=== PATIENT | female | born 1970 | race African-American/Black ===

== ENCOUNTER 2018-02-20 09:00 | Outpatient (CLI) | payer OTHER ==
[2018-02-20 10:58] LABS: INR-International Normal Ratio 1.1; PTT 28.1 SEC (22.9-36.1); Prothrombin Time 13.8 SEC (12.0-14.7)
[2018-02-20 11:00] LABS: Hemoglobin 13.5 g/dL (12.0-16.0); Mean Corpuscular HGB CONC 32.1 g/dL (32.0-36.0); Mean Corpuscular Volume 87.1 fl (81.0-99.0); Mean Platelet Volume 6.8 fL (7.4-10.4); Platelet Count 254 thou/uL (130-400); RBC Distribution Width 12.7 % (11.5-14.5); Red Blood Cell (RBC) Count 4.81 mill/uL (4.20-5.40)
[2018-02-20 11:17] LABS: ALT (SGPT) 16 U/L (8-55); AST (SGOT) 12 U/L (5-34); Albumin 4.3 g/dL (3.5-5.0); Alkaline Phosphatase 84 U/L (40-150); Anion Gap 10 mmol/L (10-20); BUN (Urea Nitrogen) 14 mg/dL (7.0-18.7); Bilirubin, Total 0.8 mg/dL (0.2-1.2); Calc. Creatinine Clearance 0 mL/min (70-130); Calcium 9.6 mg/dL (7.8-10.44); Carbon Dioxide 26 mmol/L (22-29); Cardiac Risk 4.9 (Less than 4.5); Chloride 108 mmol/L (98-107); Cholesterol 166 mg/dl (< 200 Desired); Estimated GFR-MDRD Greater than 90; Glucose 111 mg/dL (70-105); HDL Cholesterol 34 mg/dL (>60 Neg Risk); LDL Cholesterol, Calculated 102 mg/dL; Protein, Total 7.3 g/dL (6.0-8.3); Sodium 140 mmol/L (136-145); Triglycerides 151 mg/dL (Less than 150)
--- NOTE | 2018-03-19 11:04 | EKG ---
Test Reason : Blood Pressure : / mmHG Vent. Rate : 074 BPM Atrial Rate : 074 BPM P-R Int : 162 ms QRS Dur : 094 ms QT Int : 380 ms P-R-T Axes : 060 007 010 degrees QTc Int : 421 ms Normal sinus rhythm Normal ECG When compared with ECG of 23-AUG-2016 11:55, No significant change was found Confirmed by MONICA PAZ M.D. ([id number] on 03/19/2018 11:04:30 AM Referred By: JACKSON Confirmed By:MONICA PAZ M.D.
== END 2018-02-20 09:01 | disposition home or self-care (01) ==
LOC: LABBT 09:00
PROVIDERS: ATTEND Internal Medicine Cardiovascular Disease
DX: Z01.818 Encounter for other preprocedural examination (principal); R07.9 Chest pain, unspecified
CPT/HCPCS: 80053; 80061; 85027; 85610; 85730; 93005; 93010

== ENCOUNTER 2018-02-23 05:35 | Day surgery (SDC) | payer OTHER ==
[2018-02-20 09:29] VITALS: BMI 40.7
[2018-02-23] MEDS ORDERED: Lidocaine 1% (PF) 30 ML VIAL ONE (06:35)
[2018-02-23] MEDS ORDERED: Nitroglycerin 100MG/250ML BOT 250 ML ONE (07:50)
[2018-02-23] MEDS ORDERED: Verapamil 5 MG/2 ML VIAL ONE (07:50)
[2018-02-23] MEDS ORDERED: Heparin 10,000 UNITS/1 ML VIAL ONE (07:50)
[2018-02-23] MEDS ORDERED: Fentanyl 250 MCG/5 ML VIAL ONE (08:02)
[2018-02-23] MEDS ORDERED: Midazolam HCl 2 mg/2 ml Vial ONE (08:02)
[2018-02-23] MEDS ORDERED: Iopamidol 370 76% 100 ML VIAL ONE (13:27)
== END 2018-02-23 12:50 | disposition home or self-care (01) ==
LOC: CCL 05:35
PROVIDERS: ATTEND Internal Medicine Cardiovascular Disease
PROC: 4A023N7 Measurement of Cardiac Sampling and Pressure, Left Heart, Percutaneous Approach (ICD-10-PCS; principal; 2018-02-23)
DX: R07.9 Chest pain, unspecified (principal); E11.9 Type 2 diabetes mellitus without complications; I10 Essential (primary) hypertension; F31.9 Bipolar disorder, unspecified; Z90.710 Acquired absence of both cervix and uterus; Z85.43 Personal history of malignant neoplasm of ovary; Z82.49 Family history of ischemic heart disease and other diseases of the circulatory system; Z83.3 Family history of diabetes mellitus
CPT/HCPCS: 93458; 99152; 99153; C1769; J1644; J2001; J2250; J3010

== ENCOUNTER 2018-04-28 20:32 | Emergency (ER) | payer OTHER ==
[2018-04-28] MEDS ORDERED: Ibuprofen 800 MG TAB ONE (21:00)
--- NOTE | 2018-04-28 21:42 | RAD ---
LEFT KNEE FOUR VIEW 04/28/18 HISTORY: Emergency exam. Pain. COMPARISON: Radiograph 2011. FINDINGS: Small joint effusion. Mild prepatellar soft tissue edema. No acute displaced fracture or malalignment . Mild enthesopathic changes. IMPRESSION: No acute fracture or malalignment. POS: [facility]
== END 2018-04-28 23:38 | disposition home or self-care (01) ==
LOC: ERS 20:32
DX: M25.562 Pain in left knee (principal); E78.5 Hyperlipidemia, unspecified; I10 Essential (primary) hypertension; F41.9 Anxiety disorder, unspecified; F31.9 Bipolar disorder, unspecified; Z85.42 Personal history of malignant neoplasm of other parts of uterus

== ENCOUNTER 2018-06-08 17:39 | Emergency (ER) | payer OTHER | END 2018-06-08 19:05 | disposition home or self-care (01) | LOC: ERS 17:39 | DX: R60.0 Localized edema (principal); E78.5 Hyperlipidemia, unspecified; I10 Essential (primary) hypertension; Z85.42 Personal history of malignant neoplasm of other parts of uterus; F41.9 Anxiety disorder, unspecified; F31.9 Bipolar disorder, unspecified | CPT/HCPCS: 99284 ==

== ENCOUNTER 2018-07-20 12:51 | Emergency (ER) | payer OTHER ==
[2018-07-20 13:35] LABS: #Basophils 0.1 thou/uL (0.0-0.2); #Eosinphils 0.2 thou/uL (0.0-0.7); #Lymphocytes 1.8 thou/uL (1.20-3.40); #Monocytes 0.3 thou/uL (0.11-0.59); #Neutrophils 3.4 thou/uL (1.40-6.50); %Eosinophils 2.8 % (0.0-10.0); %Lymphocytes 30.9 % (21.0-51.0); %Monocytes 5.5 % (0.0-10.0); %Neutrophils 59.8 % (42.0-75.0); Hemoglobin 13.4 g/dL (12.0-16.0); Mean Corpuscular HGB CONC 34.2 g/dL (32.0-36.0); Mean Corpuscular Hemoglobin 28.6 pg (27.0-31.0); Mean Corpuscular Volume 83.6 fL (78.0-98.0); Mean Platelet Volume 6.4 fL (7.4-10.4); Platelet Count 255 thou/uL (130-400); RBC Distribution Width 12.6 % (11.5-14.5); Red Blood Cell (RBC) Count 4.69 mill/uL (4.20-5.40); White Blood Cell (WBC) Count 5.7 thou/uL (4.8-10.8)
[2018-07-20 13:55] LABS: ALT (SGPT) 18 U/L (8-55); AST (SGOT) 13 U/L (5-34); Albumin 4.3 g/dL (3.5-5.0); Alkaline Phosphatase 75 U/L (40-150); Anion Gap 14 mmol/L (10-20); BUN (Urea Nitrogen) 15 mg/dL (7.0-18.7); Bilirubin, Total 0.8 mg/dL (0.2-1.2); CK (CPK) 121 U/L (29-168); Calc. Creatinine Clearance 0 mL/min (70-130); Calcium 9.4 mg/dL (7.8-10.44); Carbon Dioxide 21 mmol/L (22-29); Chloride 108 mmol/L (98-107); Estimated GFR-MDRD 70; Globulin 3.7 g/dL (2.4-3.5); Glucose 109 mg/dL (70-105); Potassium 3.8 mmol/L (3.5-5.1); Sodium 139 mmol/L (136-145)
[2018-07-20 14:00] LABS: CKMB 1.6 ng/mL (0-6.6); Troponin I Less than 0.010 ng/mL (< 0.028)
--- NOTE | 2018-07-20 14:34 | RAD ---
CHEST 1 VIEW: Date: 07/20/18 HISTORY: Chest pain. COMPARISON: Chest radiograph dated 08/23/16. FINDINGS: No acute focal air space consolidation, pneumothorax, or effusion. Cardiac silhouette and mediastinal contours within normal limits. IMPRESSION: No acute intrathoracic abnormality. POS: [facility]
== END 2018-07-20 15:58 | disposition home or self-care (01) ==
LOC: ERS 12:51
DX: R07.2 Precordial pain (principal); I10 Essential (primary) hypertension; F31.9 Bipolar disorder, unspecified; Z79.899 Other long term (current) drug therapy
CPT/HCPCS: 36415; 71045; 80053; 82550; 82553; 83880; 84484; 85025; 93005

== ENCOUNTER 2018-12-09 13:31 | Emergency (ER) | payer OTHER | END 2018-12-09 14:27 | disposition home or self-care (01) | LOC: ERS 13:31 | DX: M25.562 Pain in left knee (principal); G89.29 Other chronic pain; E78.5 Hyperlipidemia, unspecified; I10 Essential (primary) hypertension; F41.9 Anxiety disorder, unspecified; F31.9 Bipolar disorder, unspecified; Z79.899 Other long term (current) drug therapy | CPT/HCPCS: 99283 ==

== ENCOUNTER 2019-06-11 16:04 | Emergency (ER) | payer OTHER ==
[2019-06-11] MEDS ORDERED: Ketorolac Tromethamine 30 MG/ML VIAL ONE (17:50)
--- NOTE | 2019-06-11 18:44 | RAD ---
LUMBAR SPINE: 06/11/19 Three views. HISTORY: Fall with injury to back. Lumbar vertebrae maintain normal height and alignment. Disc spaces are preserved. There are mild dege nerative osteophytes in the lumbar vertebrae. Prominent facet hypertrophy is seen throughout the lumb ar spine. No evidence of spondylolisthesis or spondylolysis. IMPRESSION: Mild to moderate degenerative changes. Prominent facet hypertrophy is seen at all levels. No acute pr ocess identified. POS: [facility]
== END 2019-06-11 18:15 | disposition home or self-care (01) ==
LOC: ERS 16:04
DX: M54.5 Low back pain (principal); E78.5 Hyperlipidemia, unspecified; F41.9 Anxiety disorder, unspecified; F31.9 Bipolar disorder, unspecified; Z79.899 Other long term (current) drug therapy; Z79.891 Long term (current) use of opiate analgesic
CPT/HCPCS: 72100; 96372; J1885

== ENCOUNTER 2019-07-23 20:30 | Outpatient (CLI) | payer OTHER | END 2019-07-23 20:31 | disposition home or self-care (01) | LOC: SLEEPLAB 20:30 | PROVIDERS: ATTEND Family Medicine | DX: G47.33 Obstructive sleep apnea (adult) (pediatric) (principal); R53.83 Other fatigue; R06.83 Snoring; I10 Essential (primary) hypertension; G47.00 Insomnia, unspecified; G47.10 Hypersomnia, unspecified; E66.9 Obesity, unspecified; Z68.41 Body mass index [BMI] 40.0-44.9, adult | CPT/HCPCS: 95811 ==

== ENCOUNTER 2023-03-29 07:33 | Outpatient (CLI) | payer OTHER ==
[2023-03-29] MEDS ORDERED: Iopamidol 370 76% 100 ML VIAL ONE (10:07)
== END 2023-03-29 07:34 | disposition home or self-care (01) ==
LOC: CT 07:33
PROVIDERS: ATTEND Specialist
DX: C18.9 Malignant neoplasm of colon, unspecified (principal)
CPT/HCPCS: 74177; Q9967

== ENCOUNTER 2023-04-27 13:00 | Inpatient (IN) | payer OTHER ==
[2023-04-27 13:45] VITALS: BMI 41.5
[2023-05-01] MEDS ORDERED: Bupivacaine PF 0.5% 30 ML VIAL ONE (10:07)
[2023-05-01] MEDS ORDERED: fentaNYL 50 mcg/mL 1 mL Vial ONE ×2 (10:07→10:55)
[2023-05-01] MEDS ORDERED: Midazolam HCl 2 mg/2 ml Vial ONE (10:07)
[2023-05-01] MEDS ORDERED: Ketorolac Tromethamine 30 MG/ML VIAL ONE ×2 (10:14→12:35)
[2023-05-01] MEDS ORDERED: Acetaminophen 500 MG TAB ONE (10:14)
[2023-05-01] MEDS ORDERED: SUGAMMADEX SODIUM 200 MG/2 ML VIAL ONE (10:55)
[2023-05-01] MEDS ORDERED: Famotidine/PF 20 mg/2ml Vial ONE (10:55)
[2023-05-01] MEDS ORDERED: Lidocaine 1% (PF) 30 ML VIAL ONE ×2 (11:07→13:09)
[2023-05-01] MEDS ORDERED: EPINEPHrine 1 MG/ML AMP ONE (11:07)
[2023-05-01] MEDS ORDERED: Sodium Chloride 0.9% 100 ML ONE (12:01)
[2023-05-01] MEDS ORDERED: cefOXitin 2 GM VIAL ONE ×2 (12:01→14:32)
[2023-05-01] MEDS ORDERED: Lidocaine 1% PF 5 ML VIAL ONE (12:35)
[2023-05-01] MEDS ORDERED: Metoprolol Tartrate 5 MG/5 ML VIAL ONE (12:35)
[2023-05-01] MEDS ORDERED: Ondansetron PF 4 MG/2 ML Vial ONE (12:35)
[2023-05-01] MEDS ORDERED: Dexamethasone 20 MG/5 ML VIAL ONE (12:35)
[2023-05-01] MEDS ORDERED: PROPOFOL 200 MG/20 ML VIAL ONE (12:35)
[2023-05-01] MEDS ORDERED: Rocuronium Bromide 10 MG/ML (10ML VIAL) ONE (12:35)
[2023-05-01] MEDS ORDERED: Ondansetron HCl/PF 4 MG/2 ML Vial IVP PRN (15:32)
[2023-05-01] MEDS ORDERED: Promethazine HCl 25 MG/ML VIAL IM PRN ×2 (15:32→17:14)
[2023-05-01] MEDS ORDERED: Morphine 2 MG/ML VIAL SLOW IVP PRN (17:14)
[2023-05-01] MEDS ORDERED: Morphine 4 MG/ML VIAL SLOW IVP PRN (17:14)
[2023-05-01] MEDS ORDERED: hydrALAZINE 20 MG/ML VIAL SLOW IVP PRN (17:14)
[2023-05-01] MEDS ORDERED: Ipratropium/Albuterol 3 ML NEB NEB PRN (17:14)
[2023-05-01] MEDS ORDERED: Ondansetron PF 4 MG/2 ML Vial IVP PRN (17:14)
[2023-05-01] MEDS: Ketorolac Tromethamine 30 MG/ML VIAL IVP SCH ×2 (17:59→23:40)
[2023-05-01] MEDS: D5 1/2 NS w/20 mEq KCL 1,000 ML IV SCH (17:59)
[2023-05-01] MEDS: Atorvastatin Calcium 40 MG TAB PO SCH (20:08)
[2023-05-01] MEDS: Famotidine 20 MG TAB PO SCH (20:08)
[2023-05-01] MEDS: Famotidine/PF 20 mg/2ml Vial SLOW IVP SCH (20:09)
[2023-05-01] MEDS: traZODone HCl 50 MG TAB PO SCH (20:09)
[2023-05-02] MEDS: D5 1/2 NS w/20 mEq KCL 1,000 ML IV SCH ×3 (01:55→17:21)
[2023-05-02] MEDS: Ketorolac Tromethamine 30 MG/ML VIAL IVP SCH ×4 (05:43→23:44)
[2023-05-02 08:02] LABS: #Monocytes 0.6 thou/uL (0.11-0.59); #Neutrophils 10.5 thou/uL (1.40-6.50); %Basophils 0.1 % (0.0-1.0); %Lymphocytes 10.2 % (21.0-51.0); %Monocytes 4.8 % (0.0-10.0); %Neutrophils 84.6 % (42.0-75.0); Hemoglobin 13.3 g/dL (12.0-16.0); Mean Corpuscular HGB CONC 31.4 g/dL (32.0-36.0); Mean Corpuscular Hemoglobin 27.1 pg (27.0-31.0); Mean Corpuscular Volume 86.3 fl (78.0-98.0); Mean Platelet Volume 9.3 fL (7.4-10.4); Platelet Count 275 10x3/uL (130-400); RBC Distribution Width 13.3 % (11.5-14.5); White Blood Cell (WBC) Count 12.4 10x3/uL (4.8-10.8)
[2023-05-02 08:22] LABS: Anion Gap 14 mmol/L (10-20); BUN (Urea Nitrogen) 10 mg/dL (9.8-20.1); Calc. Creatinine Clearance 150 mL/min (70-130); Calcium 9.2 mg/dL (7.8-10.44); Carbon Dioxide 22 mmol/L (22-29); Chloride 107 mmol/L (98-107); Estimated GFR 92; Glucose 131 mg/dL (70-105); Potassium 4.5 mmol/L (3.5-5.1); Sodium 138 mmol/L (136-145)
[2023-05-02] MEDS: Famotidine 20 MG TAB PO SCH ×2 (08:31→20:05)
[2023-05-02] MEDS: HYDROcodone/Acetaminophen 7.5/325 mg Tablet PO PRN ×3 (08:32→21:29)
[2023-05-02] MEDS: Famotidine/PF 20 mg/2ml Vial SLOW IVP SCH ×2 (08:37→20:06)
[2023-05-02] MEDS: Atorvastatin Calcium 40 MG TAB PO SCH (20:05)
[2023-05-02] MEDS: traZODone HCl 50 MG TAB PO SCH (20:06)
[2023-05-03] MEDS: D5 1/2 NS w/20 mEq KCL 1,000 ML IV SCH (01:28)
[2023-05-03] MEDS: Ketorolac Tromethamine 30 MG/ML VIAL IVP SCH ×2 (05:13→11:42)
[2023-05-03] MEDS ORDERED: D5 1/2 NS w/20 mEq KCL 1,000 ML IV SCH (08:00)
[2023-05-03 08:15] VITALS: TEMP 97.8
[2023-05-03] MEDS: Famotidine 20 MG TAB PO SCH (08:52)
[2023-05-03] MEDS: Famotidine/PF 20 mg/2ml Vial SLOW IVP SCH (08:52)
[2023-05-03 11:54] VITALS: BP 116/68
== END 2023-05-03 14:25 | disposition home or self-care (01) | DRG 330 ==
LOC: SURG A 05-01 09:49 → EDSTATUS 05-01 13:00 → SURG A 05-01 17:50
PROVIDERS: ADMIT Specialist; ATTEND Specialist
PROC: 0DBN0ZZ Excision of Sigmoid Colon, Open Approach (ICD-10-PCS; principal; 2023-05-01)
PROC: 3E0T3BZ Introduction of Anesthetic Agent into Peripheral Nerves and Plexi, Percutaneous Approach (ICD-10-PCS; 2023-05-01)
DX: C18.7 Malignant neoplasm of sigmoid colon (principal); Z68.41 Body mass index [BMI] 40.0-44.9, adult; I10 Essential (primary) hypertension; E78.5 Hyperlipidemia, unspecified; E66.01 Morbid (severe) obesity due to excess calories; Z90.710 Acquired absence of both cervix and uterus; Z79.899 Other long term (current) drug therapy
CPT/HCPCS: 36415; 36416; 80048; 81479; 85025; 88309; 88361; 88377; A4649; J0171; J0694; J1100; J1650; J1885; J2001; J2250; J2405; J2704; J3010; J3480; J3490; S0020; S0028

== ENCOUNTER 2023-07-21 19:30 | Outpatient (CLI) | payer OTHER | END 2023-07-21 19:31 | disposition home or self-care (01) | LOC: SLEEPLAB 19:30 | PROVIDERS: ATTEND Family Medicine | DX: G47.33 Obstructive sleep apnea (adult) (pediatric) (principal); R53.83 Other fatigue; R06.83 Snoring; G47.10 Hypersomnia, unspecified; E66.9 Obesity, unspecified; Z68.41 Body mass index [BMI] 40.0-44.9, adult | CPT/HCPCS: 95811 ==

== ENCOUNTER 2024-01-09 16:00 | Outpatient (CLI) | payer BC, OTHER | END 2024-01-09 16:01 | disposition home or self-care (01) | LOC: SLEEPLAB 16:00 | PROVIDERS: ATTEND Family Medicine | DX: G47.33 Obstructive sleep apnea (adult) (pediatric) (principal); R53.83 Other fatigue; R73.03 Prediabetes; E66.9 Obesity, unspecified; R06.83 Snoring; Z68.41 Body mass index [BMI] 40.0-44.9, adult | CPT/HCPCS: 95800 ==

== ENCOUNTER 2024-11-07 08:46 | Outpatient (CLI) | payer OTHER | END 2024-11-07 08:47 | disposition home or self-care (01) | LOC: DTY/OP 08:46 | DX: E66.01 Morbid (severe) obesity due to excess calories (principal); R73.03 Prediabetes; Z71.3 Dietary counseling and surveillance | CPT/HCPCS: 97802 ==